=== PATIENT | female | born 1950 | race Caucasian/White ===

== ENCOUNTER 2018-06-18 08:31 | Outpatient (CLI) | payer MEDICARE, OTHER ==
[~2018-06-18] VITALS: Ht 165.1 cm; Wt 47.6 kg
[~2018-06-18 08:31] MED LIST: APIX2.5T PO; ASPI-611 PO; DILT180C64 PO; FLO0.1T PO; LEVO50TA PO; LOSA50TA3 PO; LOVA20TA2 PO; METO25TA6 PO; PHO667C PO; SODI650T29 PO
[2018-06-18 09:06] LABS: TOTAL HEMOGLOBIN 13.3 G/dl (12.0-16.0)
[2018-06-18] MEDS ORDERED: albuterol 2.5 MG/3 ML nebule NEB ONE (09:20)
== END 2018-06-18 23:59 | disposition home or self-care (01) ==
LOC: RT 08:31
PROVIDERS: ATTEND Internal Medicine Cardiovascular Disease
DX: J98.4 Other disorders of lung (principal); I70.0 Atherosclerosis of aorta; I13.0 Hypertensive heart and chronic kidney disease with heart failure and stage 1 through stage 4 chronic kidney disease, or unspecified chronic kidney disease; I50.9 Heart failure, unspecified; N18.4 Chronic kidney disease, stage 4 (severe); M47.814 Spondylosis without myelopathy or radiculopathy, thoracic region; Z87.891 Personal history of nicotine dependence
CPT/HCPCS: 71046; 85018; 94060; 94727; 94729; 94760